=== PATIENT | male | born 2000 | race African-American/Black ===

== ENCOUNTER 2021-08-10 20:55 | Emergency (ER) | payer OTHER ==
[~2021-08-10] VITALS: Ht 175.3 cm; Wt 97.7 kg
[2021-08-11] MEDS ORDERED: NAPR-837 PO (00:17)
[2021-08-11] MEDS ORDERED: NORCO 5/325MG TABLET (HOME DOSE PACK) PO ONE (00:25)
[2021-08-11] MEDS ORDERED: NAPROXEN 250 MG TAB PO ONE (00:25)
[2021-08-11 00:32] VITALS: BP 125/68
== END 2021-08-11 00:34 | disposition home or self-care (01) ==
LOC: M ED 20:55
DX: S80.911A Unspecified superficial injury of right knee, initial encounter (principal); Y93.67 Activity, basketball